=== PATIENT | female | born 1985 | race Caucasian/White ===

== ENCOUNTER 2024-01-31 19:15 | Emergency (ER) | payer OTHER ==
[~2024-01-31] VITALS: Ht 170.2 cm; Wt 100.7 kg
[2024-01-31 19:36] VITALS: BP 129/88; PULSE 67; RESP 16; TEMP 98.6; O2SAT 97
[2024-01-31 19:52] LABS: APPEARANCE,URINE CLEAR (CLEAR); BILIRUBIN,URINE NEGATIVE (NEGATIVE); BLOOD, URINE NEGATIVE (NEGATIVE); COLOR,URINE YELLOW (YELLOW); LEUKOCYTE ESTERASE ,URINE NEGATIVE (NEGATIVE); NITRITE, URINE NEGATIVE (NEGATIVE); PROTEIN,URINE NEGATIVE (NEGATIVE); UGLUCOSE 3+ (NEGATIVE)
[2024-01-31 20:00] LABS: BASOPHILS # (AUTO) 0.1 K/uL (0.00-0.22); EOSINOPHILS # (AUTO) 0.2 K/uL (0-0.4); EOSINOPHILS % (AUTO) 2.8 % (0.0-4.0); HEMATOCRIT 39.3 % (36-48); HEMOGLOBIN 13.3 g/dL (12.0-16.0); LYMPHOCYTES # (AUTO) 2.3 K/uL (2.5-16.5); LYMPHOCYTES % (AUTO) 26.6 % (20.5-51.1); MEAN CORPUSCULAR HEMOGLOBIN 30 pg (27-31); MEAN CORPUSCULAR HGB CONC 34 g/dL (33-37); MONOCYTES # (AUTO) 0.6 K/uL (0.8-1.0); MONOCYTES % (AUTO) 7.2 % (1.7-9.3); NEUTROPHILS # (AUTO) 5.5 K/uL (1.8-7.7); NEUTROPHILS % (AUTO) 62.4 % (42.2-75.2); PLATELET COUNT (AUTO) 454 K/uL (140-450); RED BLOOD CELL COUNT(AUTO) 4.52 MIL/uL (4.20-5.40); RED CELL DISTRIBUTION WIDTH 13.9 % (11.6-13.7); WHITE BLOOD COUNT (AUTO) 8.8 K/uL (4.8-10.8)
[2024-01-31] MEDS: FAMOTIDINE 20 MG/2 ML VIAL IVP ONE (20:04)
[2024-01-31] MEDS: NACL 0.9% 1,000 ML IV SCH (20:05)
[2024-01-31] MEDS: ONDANSETRON 4 MG/2 ML VIAL IVP ONE (20:05)
[2024-01-31] MEDS: LOPERAMIDE 2 MG CAP PO ONE (20:05)
[2024-01-31 20:12] LABS: ANION GAP 11.9 (8-16); CALCIUM 8.7 mg/dL (8.5-10.1); CARBON DIOXIDE 28.8 mmol/L (21-32); CREATININE 1.1 mg/dL (0.6-1.3); POTASSIUM 3.7 mmol/L (3.5-5.1)
[2024-01-31 20:15] LABS: ALBUMIN 3.5 g/dL (3.4-5.0); BILIRUBIN,DIRECT 0.1 mg/dL (0.0-0.3); TOTAL BILIRUBIN 0.8 mg/dL (0.0-1.0); TOTAL PROTEIN, SERUM 7.4 g/dL (6.4-8.2)
[2024-01-31] MEDS ORDERED: ONDA-188 SL (20:27)
[2024-01-31] MEDS ORDERED: FAMO-90 PO (20:27)
[2024-01-31] MEDS ORDERED: LOPE-289 PO (20:27)
[2024-01-31 20:33] VITALS: BP 129/88; PULSE 67; RESP 16; TEMP 98.6; O2SAT 97
== END 2024-01-31 20:33 | disposition home or self-care (01) ==
LOC: MED 19:15
DX: R11.10 Vomiting, unspecified (principal); R10.13 Epigastric pain; R19.7 Diarrhea, unspecified; R73.9 Hyperglycemia, unspecified; J45.909 Unspecified asthma, uncomplicated; Z79.899 Other long term (current) drug therapy
CPT/HCPCS: 36415; 80048; 80076; 81003; 81025; 83690; 85025; 96374; 96375; 99284; J2405; J3490; J7030